=== PATIENT | male | born 1955 ===

== ENCOUNTER 2022-10-21 22:25 | Inpatient (IN) | payer MEDICARE, OTHER, SELFPAY ==
[2022-10-21 22:25] VITALS: BP 130/64; PULSE 93; RESP 32; TEMP 39.6; O2SAT 93; BMI 30.7
[2022-10-21 22:29] VITALS: BP 136/65; PULSE 96; RESP 32; O2SAT 88
[2022-10-21 22:30] VITALS: BP 130/64; PULSE 95; RESP 32; O2SAT 94
--- NOTE | 2022-10-21 22:38 | DI.RAD.S_ITS ---
PROCEDURE: XR CHEST 1V INDICATIONS: suspected sepsis TECHNIQUE: One view of the chest was acquired. COMPARISON: None. FINDINGS: Surgical changes and devices: None. Lungs and pleura: Lungs are clear. No pleural effusions or pneumothorax. Mediastinum: Mediastinal contours appear normal. Heart size is normal. Bones and chest wall: No suspicious bony lesions. Overlying soft tissues appear unremarkable. IMPRESSION: 1. No acute cardiopulmonary disease. Dictated by: Bethel Bain M.D. on 10/21/2022 at 23:56 Approved by: Bethel Bain M.D. on 10/21/2022 at 23:57
[2022-10-21 22:50] LABS: Add Manual Diff / Slide Review NO; Basophils Absolute Auto 0 /uL (0-100); Basophils Percent Auto 0.1 % (0-2); Eosinophils Absolute Auto 0 /uL (0-450); Eosinophils Percent Auto 0.2 % (2-4); Hematocrit 44.1 % (41-53); Hemoglobin 14.4 g/dL (13.5-17.5); Lymphocytes Absolute Auto 900 /uL (1100-4500); Lymphocytes Percent Auto 10.4 % (25-40); Mean Corpuscular HGB Conc 32.7 % (30-36); Mean Corpuscular Hemoglobin 26.5 PG (26-34); Mean Corpuscular Volume 80.9 fL (80-100); Monocytes Absolute Auto 1000 /uL (0-900); Monocytes Percent Auto 11.6 % (3-14); Neutrophils Absolute Auto 7000 /uL (1500-7000); Neutrophils Percent Auto 77.7 % (50-75); Platelet Count 193 X10^3/uL (150-400); Red Blood Cell Count 5.45 X10^6/uL (4.5-5.9); Red Cell Distribution Width 16.8 % (11.6-14.8); White Blood Cell Count 9.1 X10^3/uL (4.5-11.0)
[2022-10-21 22:53] LABS: INR 1.2 (0.9-1.3); Prothrombin Time 13.3 SECONDS (10.1-12.7)
[2022-10-21 22:56] LABS: PTT Partial Thromboplastin Tim 33 SECONDS (26-36)
[2022-10-21 22:58] LABS: Lactate (Lactic Acid) 1.6 mmol/L (0.7-2.1)
[2022-10-21 23:00] LABS: Alanine Aminotransferase 22 IU/L (<50); Albumin 4.3 g/dL (3.5-5.0); Albumin Globulin Ratio 1.1 (1.0-2.8); Alkaline Phosphatase 115 U/L (38-126); Aspartate Aminotransferase 33 IU/L (17-59); BUN Creatinine Ratio 17.6 (6-22); Bilirubin Total 0.9 mg/dL (0.2-1.3); Blood Urea Nitrogen 19 mg/dL (9-20); Carbon Dioxide 31 mmol/L (22-32); Chloride 94 mmol/L (98-107); Estimated Glomerular Filt Rate > 60 mL/min (>60); Globulin 3.9 g/dL (1.7-4.1); Glucose 118 mg/dL (80-110); HEMOLYSIS < 15 (0-50); Lipase 74 U/L (23-300); Potassium 3.6 mmol/L (3.4-5.1); Sodium 134 mmol/L (137-145); Total Protein 8.2 g/dL (6.3-8.2)
[2022-10-21 23:10] VITALS: PULSE 90; RESP 22; O2SAT 96
[2022-10-21] MEDS: ALBUTEROL 2.5 MG/3 ML NEB (ADULT) INH (23:10)
[2022-10-21 23:16] LABS: Procalcitonin 0.17 ng/mL (<0.5)
--- NOTE | 2022-10-21 23:20 | ED.GENADULT ---
HPI - General Adult General Chief complaint: Fever Stated complaint: Lethargic, High grade fever Time Seen by Provider: 10/21/22 23:20 Source: patient and EMS Mode of arrival: EMS History of Present Illness HPI narrative: 67-year-old gentleman brought in by his with complaints of altered mental status, fever and global weakness. No immediate records are available and patient states that his primary care doctor is in [place]. He is clearly confused and additional history is not forthcoming. Review of his current medication list indicates Parkinson's disease, peripheral neuropathy, reflux, hypertension as well as diabetes. Per report, patient's temperature at home was 105 room air sats were 86%. There has been a cough over the last at least 3 days, he denies nausea vomiting or diarrhea. He states that he has been eating less over the last few days and also complains of no chest pain or palpitations. He denies any fever. Further history notes that he and his are in fact visiting for a [facility] ceremony Related Data Home Medications Medication Instructions Recorded Confirmed albuterol sulfate 90 mcg/actuation See Rx Instructions .Route .COMPLEX 10/21/22 10/21/22 aerosol inhaler calcium carbonate 600 mg-vitamin 1 tab PO DAILY 10/21/22 10/21/22 D3 10 mcg (400 unit) tablet (Calcium 600 + D(3)) carbidopa 25 mg-levodopa 100 mg tab 10/21/22 tablet cephalexin 500 mg capsule mg 10/21/22 diclofenac sodium 1 % topical gel topical 10/21/22 docusate sodium 100 mg capsule 100 mg PO BID 10/21/22 10/21/22 famotidine 20 mg tablet mg 10/21/22 ferrous sulfate 325 mg (65 mg 325 mg PO DAILY 10/21/22 10/21/22 iron) tablet gabapentin 100 mg capsule 100 mg PO TID 10/21/22 10/21/22 hydrochlorothiazide 25 mg tablet 12.5 mg PO DAILY 10/21/22 10/21/22 metoprolol tartrate 25 mg tablet 25 mg PO BID 10/21/22 10/21/22 naproxen 250 mg tablet mg 10/21/22 omeprazole 40 mg capsule,delayed 40 mg PO DAILY 10/21/22 10/21/22 release triamcinolone acetonide 0.1 % topical 10/21/22 lotion Allergies Allergy/AdvReac Type Severity Reaction Status Date / Time No Known Drug Allergies Allergy Verified 10/21/22 23:11 Review of Systems Review of Systems Narrative: Pertinent positive and negative findings as per HPI Patient History Medical History (Updated 10/22/22 @ 01:06 by Glendy Kelley MD) Acid reflux Diabetes Hypertension Parkinsons Exam Initial Vital Signs Initial Vital Signs: Vital Signs Temperature 103.2 F H 10/21/22 22:25 Pulse Rate 93 H 10/21/22 22:25 Respiratory Rate 32 H 10/21/22 22:25 Blood Pressure 130/64 10/21/22 22:25 Pulse Oximetry 93 10/21/22 22:25 Oxygen Delivery Method Nasal Cannula 10/21/22 22:25 Oxygen Flow Rate 2 10/21/22 22:25 General: Chronically ill-appearing, confused, tachypneic HEENT: Moist mucous membranes, normal sclera with reactive pupils, Neck: No JVD, supple, no cervical adenopathy Respiratory: Lungs with minor scattered wheezes in middle lung montejo, no rhonchi no rales.. Full and symmetrical air movement Cardiac: Regular rate and rhythm no murmurs no bruits Abdomen: Soft, nontender, good bowel tones, no flank pain Skin: Warm and dry, no rashes Neurologic: Moving all extremities but clearly altered, globally weak Extremities: No trauma, well perfused Psych: Cooperative, not oriented to place or events Course Orders Ordered: ED Orders 10/21/22 22:27 Complete Blood Count AUTO DIFF Stat Comprehensive Metabolic Panel Stat Lactate (Lactic Acid) Stat Lipase Stat PTT Partial Thromboplastin Ino Stat Procalcitonin Stat Prothrombin Time INR Stat 10/21/22 22:29 Respiratory Panel (Film Array) Stat 10/21/22 22:38 XR chest 1V Stat EKG-12 Lead Stat RT Consult Eval and Treat NOW 10/21/22 22:58 Blood Culture Stat Ondansetron HCl (Ondansetron 4 Mg/2 Ml Inj) 4 mg IV NOW PRN PRN Reason: Nausea And Vomiting Ondansetron HCl (Ondansetron 4 Mg Odt) 4 mg SL NOW PRN PRN Reason: Nausea And Vomiting Discontinued Medications Acetaminophen (Acetaminophen 325 Mg Tablet) 975 mg PO NOW ONE Stop: 10/21/22 23:45 Last Admin: 10/21/22 23:54 Dose: 975 mg Documented By: SB Albuterol (Albuterol 2.5 Mg/3 Ml Neb (Adult)) 2.5 mg INH NOW ONE Stop: 10/21/22 23:02 Last Admin: 10/21/22 23:10 Dose: 2.5 mg Documented By: JERMAIN Sodium Chloride (Normal Saline 0.9%) 1,000 mls @ 1,000 mls/hr IV BOLUS ONE Stop: 10/21/22 23:37 Last Admin: 10/21/22 23:54 Dose: 1,000 mls/hr Documented By: SURI Vital Signs Vital signs: Vital Signs - 8 hr 10/21/22 22:25 10/21/22 23:10 10/21/22 22:29 Temperature 103.2 F H Pulse Rate 93 H 90 Respiratory Rate 32 H 22 Blood Pressure 130/64 136/65 Pulse Oximetry 93 96 Oxygen Delivery Method Nasal Cannula Nasal Cannula Oxygen Flow Rate 2 2 Fraction of Inspired Oxygen 28 10/21/22 22:29 10/21/22 22:30 10/21/22 22:30 Temperature Pulse Rate 96 H 95 H Respiratory Rate 32 H 32 H Blood Pressure 130/64 Pulse Oximetry 88 L 94 Oxygen Delivery Method Room Air Nasal Cannula Oxygen Flow Rate 2 Fraction of Inspired Oxygen 10/21/22 23:57 10/21/22 23:58 10/21/22 23:58 Temperature Pulse Rate 97 H 98 H Respiratory Rate 28 H 29 H Blood Pressure 138/64 Pulse Oximetry 95 96 Oxygen Delivery Method Nasal Cannula Oxygen Flow Rate 2 Fraction of Inspired Oxygen 10/22/22 00:00 10/22/22 00:00 10/22/22 00:30 Temperature Pulse Rate 99 H Respiratory Rate 30 H Blood Pressure 134/57 L 132/60 Pulse Oximetry 94 Oxygen Delivery Method Oxygen Flow Rate Fraction of Inspired Oxygen 10/22/22 00:30 10/22/22 00:34 Temperature 101.7 F H 101.7 F H Pulse Rate 94 H Respiratory Rate 26 H Blood Pressure Pulse Oximetry 94 Oxygen Delivery Method Nasal Cannula Oxygen Flow Rate 2 Fraction of Inspired Oxygen Medical Decision Making Lab Data 10/21/22 22:27 10/21/22 22:27 Labs: Lab Results 10/21/22 10/21/22 10/21/22 Range/Units 22:27 22:27 22:27 WBC 9.1 (4.5-11.0) X10^3/uL RBC 5.45 (4.5-5.9) X10^6/uL Hgb 14.4 (13.5-17.5) g/dL Hct 44.1 (41-53) % MCV 80.9 (80-100) fL MCH 26.5 (26-34) PG MCHC 32.7 (30-36) % RDW 16.8 H (11.6-14.8) % Plt Count 193 (150-400) X10^3/uL Neut % (Auto) 77.7 H (50-75) % Lymph % (Auto) 10.4 L (25-40) % [place] % (Auto) 11.6 (3-14) % Eos % (Auto) 0.2 L (2-4) % Baso % (Auto) 0.1 (0-2) % Neut # (Auto) 7000 (6169-2116) /uL Lymph # (Auto) 900 L (2820-9290) /uL [place] # (Auto) 1000 H (0-900) /uL Eos # (Auto) 0 (0-450) /uL Baso # (Auto) 0 (0-100) /uL PT 13.3 H (10.1-12.7) SECONDS INR 1.2 (0.9-1.3) APTT 33 (26-36) SECONDS Sodium 134 L (137-145) mmol/L Potassium 3.6 (3.4-5.1) mmol/L Chloride 94 L (98-107) mmol/L Carbon Dioxide 31 (22-32) mmol/L BUN 19 (9-20) mg/dL Creatinine 1.08 (0.66-1.25) mg/dL Estimated GFR > 60 (>60) mL/min BUN/Creatinine Ratio 17.6 (6-22) Glucose 118 H (80-110) mg/dL Lactate (0.7-2.1) mmol/L Calcium 8.0 L (8.4-10.2) mg/dL Total Bilirubin 0.9 (0.2-1.3) mg/dL AST 33 (17-59) IU/L ALT 22 (<50) IU/L Alkaline Phosphatase 115 (38-126) U/L Total Protein 8.2 (6.3-8.2) g/dL Albumin 4.3 (3.5-5.0) g/dL Globulin 3.9 (1.7-4.1) g/dL Albumin/Globulin Ratio 1.1 (1.0-2.8) Lipase 74 (23-300) U/L Procalcitonin 0.17 (<0.5) ng/mL Chlamy pneumoniae PCR (Not Detect) Adenovirus (PCR) (Not Detect) B. pertussis DNA (PCR) (Not Detecte) B.parapertussis DNA PCR (Not Detecte) Coronavirus OC43 (PCR) (Not Detect) Coronavirus HKU1 (PCR) (Not Detect) Coronavirus 229E (PCR) (Not Detect) SARS-CoV-2 (PCR) (Not Detecte) Coronavirus NL63 (PCR) (Not Detect) Human Metapneumovir PCR (Not Detect) Influenza Type A (PCR) (Not Detect) Influenza Type B (PCR) (Not Detect) M. pneumoniae (PCR) (Not Detect) Parainfluenza 1 (PCR) (Not Detect) Parainfluenza 2 (PCR) (Not Detect) Parainfluenza 3 (PCR) (Not Detect) Parainfluenza 4 (PCR) (Not Detect) RSV (PCR) (Not Detect) Entero/Rhino (PCR) (Not Detect) 10/21/22 10/21/22 Range/Units 22:27 22:29 WBC (4.5-11.0) X10^3/uL RBC (4.5-5.9) X10^6/uL Hgb (13.5-17.5) g/dL Hct (41-53) % MCV (80-100) fL MCH (26-34) PG MCHC (30-36) % RDW (11.6-14.8) % Plt Count (150-400) X10^3/uL Neut % (Auto) (50-75) % Lymph % (Auto) (25-40) % [place] % (Auto) (3-14) % Eos % (Auto) (2-4) % Baso % (Auto) (0-2) % Neut # (Auto) (7074-8200) /uL Lymph # (Auto) (7634-6465) /uL [place] # (Auto) (0-900) /uL Eos # (Auto) (0-450) /uL Baso # (Auto) (0-100) /uL PT (10.1-12.7) SECONDS INR (0.9-1.3) APTT (26-36) SECONDS Sodium (137-145) mmol/L Potassium (3.4-5.1) mmol/L Chloride (98-107) mmol/L Carbon Dioxide (22-32) mmol/L BUN (9-20) mg/dL Creatinine (0.66-1.25) mg/dL Estimated GFR (>60) mL/min BUN/Creatinine Ratio (6-22) Glucose (80-110) mg/dL Lactate 1.6 (0.7-2.1) mmol/L Calcium (8.4-10.2) mg/dL Total Bilirubin (0.2-1.3) mg/dL AST (17-59) IU/L ALT (<50) IU/L Alkaline Phosphatase (38-126) U/L Total Protein (6.3-8.2) g/dL Albumin (3.5-5.0) g/dL Globulin (1.7-4.1) g/dL Albumin/Globulin Ratio (1.0-2.8) Lipase (23-300) U/L Procalcitonin (<0.5) ng/mL Chlamy pneumoniae PCR Not detected (Not Detect) Adenovirus (PCR) Not detected (Not Detect) B. pertussis DNA (PCR) Not detected (Not Detecte) B.parapertussis DNA PCR Not detected (Not Detecte) Coronavirus OC43 (PCR) Not detected (Not Detect) Coronavirus HKU1 (PCR) Not detected (Not Detect) Coronavirus 229E (PCR) Not detected (Not Detect) SARS-CoV-2 (PCR) Not detected (Not Detecte) Coronavirus NL63 (PCR) Not detected (Not Detect) Human Metapneumovir PCR Not detected (Not Detect) Influenza Type A (PCR) Not detected (Not Detect) Influenza Type B (PCR) Not detected (Not Detect) M. pneumoniae (PCR) Not detected (Not Detect) Parainfluenza 1 (PCR) Not detected (Not Detect) Parainfluenza 2 (PCR) Detected H (Not Detect) Parainfluenza 3 (PCR) Not detected (Not Detect) Parainfluenza 4 (PCR) Not detected (Not Detect) RSV (PCR) Not detected (Not Detect) Entero/Rhino (PCR) Not detected (Not Detect) MDM Narrative Medical decision making narrative: CC: Fever weakness confusion this is an acute problem uncertain prognosis Complicating co-morbidities: Parkinson's, diabetes, hypertension Data collected from: patient, Social determinants of health that may influence the patients condition: No access to medical records and history from patient is unreliable Medical records reviewed: Does not appear to have been evaluated at [facility] or [facility] previously Differential considered: Viral infection, bacterial infection, sepsis, stroke Exam documented above, pertinent findings include: Globally weak, confused, scattered wheeze no focal findings for bacterial infection appreciated Lab Test results independently reviewed as above. Pertinent findings: Respiratory panel is positive for parainfluenza 2 CBC is unremarkable white cell count is within normal limits no significant anemia. Metabolic panel is relatively benign Procalcitonin is not elevated Lactic acid is not elevated Independently reviewed EKG: Sinus rhythm with a right bundle branch block. No acute ischemic changes. No comparisons available Imaging studies independently reviewed: Chest x-ray does not show Treatments: Tylenol, fluids, Zofran Discussion: 67-year-old gentleman who presents with fever confusion and weakness. He is positive for parainfluenza virus which is the likely explanation. There is no sign of bacterial infection or lactic acidosis. History overall is limited. Given the overall presentation with oxygen saturations at 86% I believe he needs to be admitted for his viral pneumonia with confusion fever and hypoxia. His responding nicely to nasal cannula oxygen and I do not anticipate that he will progress to needing additional respiratory support within the next 24 hours. There is no indication at this time for antibiotics. There is no evidence of acute coronary syndrome or stroke. Care is reviewed with hospitalist service and patient is admitted. Discharge Plan Departure Patient Disposition: Admitted as Observation Clinical Impression: Parainfluenza infection, Hypoxia Altered mental state Qualifiers: Altered mental status type: delirium Qualified Code(s): R41.0 - Disorientation, unspecified
[2022-10-21 23:37] LABS: Adenovirus Not Detected (Not Detect); Coronavirus 229E Not Detected (Not Detect); Coronavirus HKU1 Not Detected (Not Detect); Coronavirus NL 63 Not Detected (Not Detect); Coronavirus OC43 Not Detected (Not Detect); Human Metapneumovirus Not Detected (Not Detect); Human Rhinovirus/Enterovirus Not Detected (Not Detect); Influenza A Not Detected (Not Detect); Influenza B Not Detected (Not Detect); Parainfluenza Virus 1 Not Detected (Not Detect); Parainfluenza Virus 2 Detected (Not Detect); SARS- CoV-2 Not Detected (Not Detecte)
[2022-10-21 23:38] LABS: B. parapertussis Not Detected (Not Detecte); Bordetella pertussis Not Detected (Not Detecte); Chlamydophila pneumoniae Not Detected (Not Detect); Mycoplasma pneumoniae Not Detected (Not Detect); Parainfluenza Virus 3 Not Detected (Not Detect); Parainfluenza Virus 4 Not Detected (Not Detect); Respiratory Syncytial Virus Not Detected (Not Detect)
[2022-10-21] MEDS: ACETAMINOPHEN 325 MG TABLET 975 MG PO (23:54)
[2022-10-21] MEDS: SODIUM CHLORIDE 0.9% 1,000 ML 1000 ML IV (23:54)
[2022-10-21 23:57] VITALS: PULSE 97; RESP 28; O2SAT 95
[2022-10-21 23:58] VITALS: BP 138/64; PULSE 98; RESP 29; O2SAT 96
[2022-10-22] VITALS (16 sets, daily range): BP systolic 115–146; BP diastolic 51–77; PULSE 65–99; RESP 17–30; TEMP 37–38.7; O2SAT 92–97; BMI 30.3
--- NOTE | 2022-10-22 01:29 | P.HP_ITS ---
History of Present Illness History of Present Illness Date Patient Seen: 10/22/22 Time Patient Seen: 01:29 Chief complaint: Acute respiratory failure, parainflu2, enceph Narrative: Kevin Torres is a 67-year-old male with a medical history of Parkinson's disease, peripheral neuropathy, GERD, HTN, asthma, iron-deficiency anemia who is visiting the area from [place] patient was brought in by his this evening for acute onset of confusion, fever, global weakness, with cough x3 days. Patient presented to the ED fever 103.2, 93, tachypneic 32, 130/64, hypoxic O2 saturation 86% on room air. The patient's dropped him off in the ED and was not present at the bedside for Dr. Uirbe ED to interview. Patient is clearly confused, able to state his name and knows that he is in hospital but is confused as to how he got here, and unable to provide accurate HPI, ROS, family history, or medication reconciliation. Patient denies any pain, discomfort, or shortness of breath, and appears to be resting comfortably in bed. On admit temp 101.7?, 132/60, 94, 22, pulse ox 94% on 2 L nasal cannula. Patient's workup is predominantly unremarkable sodium 134, chloride 94, lactate procalcitonin are normal, CXR-negative for any acute process. EKG:NSR, rate of 96, right BBB without ST or T-wave changes. Patient's respiratory panel positive for parainfluenza 2. Patient admitted for acute hypoxic respiratory failure secondary to parainfluenza 2 with encephalopathy. [facility] Medical History Acid reflux Asthma Hypertension Iron deficiency anemia Parkinsons disease Peripheral neuropathy Meds Home Medications and Allergies Home Medications Medication Instructions Recorded Confirmed Type albuterol sulfate 90 mcg/actuation See Rx Instructions .Route .COMPLEX 10/21/22 10/21/22 History aerosol inhaler calcium carbonate 600 mg-vitamin 1 tab PO DAILY 10/21/22 10/21/22 History D3 10 mcg (400 unit) tablet (Calcium 600 + D(3)) carbidopa 25 mg-levodopa 100 mg tab 10/21/22 History tablet cephalexin 500 mg capsule mg 10/21/22 History diclofenac sodium 1 % topical gel topical 10/21/22 History docusate sodium 100 mg capsule 100 mg PO BID 10/21/22 10/21/22 History famotidine 20 mg tablet mg 10/21/22 History ferrous sulfate 325 mg (65 mg 325 mg PO DAILY 10/21/22 10/21/22 History iron) tablet gabapentin 100 mg capsule 100 mg PO TID 10/21/22 10/21/22 History hydrochlorothiazide 25 mg tablet 12.5 mg PO DAILY 10/21/22 10/21/22 History metoprolol tartrate 25 mg tablet 25 mg PO BID 10/21/22 10/21/22 History naproxen 250 mg tablet mg 10/21/22 History omeprazole 40 mg capsule,delayed 40 mg PO DAILY 10/21/22 10/21/22 History release triamcinolone acetonide 0.1 % topical 10/21/22 History lotion Allergies Allergy/AdvReac Type Severity Reaction Status Date / Time No Known Drug Allergies Allergy Verified 10/21/22 23:11 Review of Systems Review of Systems Narrative: Unable to obtain accurate ROS as patient has encephalopathy, in ED he denied fever Exam Vital Signs (past 8 hours): - 10/21/22 22:25 10/21/22 23:10 10/21/22 22:29 Temperature 103.2 F H Pulse Rate 93 H 90 Respiratory Rate 32 H 22 Blood Pressure 130/64 136/65 Pulse Oximetry 93 96 Oxygen Delivery Method Nasal Cannula Nasal Cannula Oxygen Flow Rate 2 2 Fraction of Inspired Oxygen 28 10/21/22 22:29 10/21/22 22:30 10/21/22 22:30 Temperature Pulse Rate 96 H 95 H Respiratory Rate 32 H 32 H Blood Pressure 130/64 Pulse Oximetry 88 L 94 Oxygen Delivery Method Room Air Nasal Cannula Oxygen Flow Rate 2 Fraction of Inspired Oxygen 10/21/22 23:57 10/21/22 23:58 10/21/22 23:58 Temperature Pulse Rate 97 H 98 H Respiratory Rate 28 H 29 H Blood Pressure 138/64 Pulse Oximetry 95 96 Oxygen Delivery Method Nasal Cannula Oxygen Flow Rate 2 Fraction of Inspired Oxygen 10/22/22 00:00 10/22/22 00:00 10/22/22 00:30 Temperature Pulse Rate 99 H Respiratory Rate 30 H Blood Pressure 134/57 L 132/60 Pulse Oximetry 94 Oxygen Delivery Method Oxygen Flow Rate Fraction of Inspired Oxygen 10/22/22 00:30 10/22/22 00:34 Temperature 101.7 F H 101.7 F H Pulse Rate 94 H Respiratory Rate 26 H Blood Pressure Pulse Oximetry 94 Oxygen Delivery Method Nasal Cannula Oxygen Flow Rate 2 Fraction of Inspired Oxygen Fraction of Inspired Oxygen 28 SaO2/FiO2 Ratio 342 Oxygen Delivery Method Nasal Cannula Oxygen Flow Rate 2 Narrative Exam Narrative: General: Patient is a well-developed, well-nourished male in no distress at this time. HEENT: Normocephalic, atraumatic, extraocular muscles intact, oral pharynx is clear and mucous membranes are moist. Neck is supple and symmetric, trachea is midline, no adenopathy, no thyroid enlargement, nontender, no masses palpated. Negative for JVD Chest: Normal AP diameter and contour without kyphoscoliosis, Equal chest rise without nasal flaring, retractions, or labored breathing. Mild tachypnea Lungs: Auscultation of all lung montejo bilateral lower lobes decreased, poor air exchange with expiratory wheezing Cardio: regular rate and rhythm without murmur, rubs, or gallops, no carotid bruit, no cardiac pulsations present. Abdomen: Soft nontender, negative for organomegaly, or masses. Bowel sounds are present in all 4 quadrants without guarding or rebound, no CVA tenderness. Musculoskeletal: Muscle strength and tone are equal, no deformity, crepitus, effusions, cyanosis, clubbing or edema present. Full range of motion intact radial and pedal pulses are normal. Skin: Very Warm dry and intact without rashes, ulcerations or petechiae. Neuro: Alert and orientated to self, moves all extremities, sensation to touch intact, no gross deficits noted of cranial nerves. Psych: Patient confused, does have what appears to be a diagnosis of Parkinson's. Objective Labs 10/21/22 22:27 10/21/22 22:27 Labs: Laboratory Results - last 24 hr 10/21/22 10/21/22 10/21/22 22:27 22:27 22:27 WBC 9.1 RBC 5.45 Hgb 14.4 Hct 44.1 MCV 80.9 MCH 26.5 MCHC 32.7 RDW 16.8 H Plt Count 193 Neut % (Auto) 77.7 H Lymph % (Auto) 10.4 L [place] % (Auto) 11.6 Eos % (Auto) 0.2 L Baso % (Auto) 0.1 Neut # (Auto) 7000 Lymph # (Auto) 900 L [place] # (Auto) 1000 H Eos # (Auto) 0 Baso # (Auto) 0 PT 13.3 H INR 1.2 APTT 33 Sodium 134 L Potassium 3.6 Chloride 94 L Carbon Dioxide 31 BUN 19 Creatinine 1.08 Estimated GFR > 60 BUN/Creatinine Ratio 17.6 Glucose 118 H Lactate Calcium 8.0 L Total Bilirubin 0.9 AST 33 ALT 22 Alkaline Phosphatase 115 Total Protein 8.2 Albumin 4.3 Globulin 3.9 Albumin/Globulin Ratio 1.1 Lipase 74 Procalcitonin 0.17 Chlamy pneumoniae PCR Adenovirus (PCR) B. pertussis DNA (PCR) B.parapertussis DNA PCR Coronavirus OC43 (PCR) Coronavirus HKU1 (PCR) Coronavirus 229E (PCR) SARS-CoV-2 (PCR) Coronavirus NL63 (PCR) Human Metapneumovir PCR Influenza Type A (PCR) Influenza Type B (PCR) M. pneumoniae (PCR) Parainfluenza 1 (PCR) Parainfluenza 2 (PCR) Parainfluenza 3 (PCR) Parainfluenza 4 (PCR) RSV (PCR) Entero/Rhino (PCR) 10/21/22 10/21/22 22:27 22:29 WBC RBC Hgb Hct MCV MCH MCHC RDW Plt Count Neut % (Auto) Lymph % (Auto) [place] % (Auto) Eos % (Auto) Baso % (Auto) Neut # (Auto) Lymph # (Auto) [place] # (Auto) Eos # (Auto) Baso # (Auto) PT INR APTT Sodium Potassium Chloride Carbon Dioxide BUN Creatinine Estimated GFR BUN/Creatinine Ratio Glucose Lactate 1.6 Calcium Total Bilirubin AST ALT Alkaline Phosphatase Total Protein Albumin Globulin Albumin/Globulin Ratio Lipase Procalcitonin Chlamy pneumoniae PCR Not detected Adenovirus (PCR) Not detected B. pertussis DNA (PCR) Not detected B.parapertussis DNA PCR Not detected Coronavirus OC43 (PCR) Not detected Coronavirus HKU1 (PCR) Not detected Coronavirus 229E (PCR) Not detected SARS-CoV-2 (PCR) Not detected Coronavirus NL63 (PCR) Not detected Human Metapneumovir PCR Not detected Influenza Type A (PCR) Not detected Influenza Type B (PCR) Not detected M. pneumoniae (PCR) Not detected Parainfluenza 1 (PCR) Not detected Parainfluenza 2 (PCR) Detected H Parainfluenza 3 (PCR) Not detected Parainfluenza 4 (PCR) Not detected RSV (PCR) Not detected Entero/Rhino (PCR) Not detected Assessment & Plan Assessment & Plan narrative: Kevin Torres is a 67-year-old male with a medical history of Parkinson's disease, peripheral neuropathy, GERD, HTN, asthma, iron-deficiency anemia who is [place] the area from [place] patient was brought in by his this evening for acute onset of confusion, fever, global weakness, with cough x3 days. Patient admitted for acute hypoxic respiratory failure secondary to parainfluenza 2 with encephalopathy. Acute hypoxic respiratory failure secondary to parainfluenza 2, acute, present on admit * ED fever 103.2, 93, tachypneic 32, 130/64, hypoxic O2 saturation 86% on room air. * admit temp 101.7?, 132/60, 94, 22, pulse ox 94% on 2 L nasal cannula * Respiratory consult as needed, incentive spirometry, DuoNebs b.i.d. * Blood cultures pending, sputum culture ordered * manage temp, and resp function. Sepsis, without septic shock, acute, present on admission * Respiratory secondary to parainfluenza 2 * Sofa score: 3 * 1 L bolus in ED, ordered additional L bolus * Lactate, procalcitonin, CXR, and WBC neg-did not initiate antibiotics Encephalopathy, acute secondary to parainfluenza 2, acute, present on admission * NS at 80cc/hr * Neuro checks as needed * UA, tox screen ordered * Strict fall precautions Parkinson's disease, chronic, present on admission * Continue carbidopa-levodopa Hypertension, essential, chronic, present on admission * Continue metoprolol, HCTZ Iron-deficiency anemia, chronic, present on admission * Continue ferrous sulfate GERD, chronic, present on admission * Continue omeprazole Obesity, mild, acute on chronic, present on admission * BMI 30.7 * dietary consult ordered regarding nutritional education and information for dietary, lifestyle, exercise, and weight changes. * the patient is at much higher risk for medical and surgical complications due to obesity as it relates to chronic illnesses:, and acute illness. The patient's obesity increases the difficulty and complexity of medical and/or surgical interventions, management and increases the chances of poor outcome such as morbidity and mortality as well as impaired wound healing. Code status:full Surrogate decision maker: spouse Cara Torres DVT/VTE prophylaxis: Lovenox and SCDs Disposition: patient admit to acute care expected length of stay greater than 2 midnights. I have utilized all available immediate resources to obtain, update, or review the patient's current medications. I confirmed that the patient's advanced care plan is present, Code status is documented and/or surrogate decision maker is listed in the patient's medical record. I have personally reviewed patient's chart notes from PCP, specialists, diagnostic imaging, and laboratory results. Scores GCS Lucio coma scale eye opening: To sound Lucio coma scale verbal response: Confused Lucio coma scale motor response: Obey commands Lucio coma scale total score: 13
[2022-10-22 02:00] LABS: NT-proBNP (BNP-Adult 18+) 291 pg/mL (<125)
[2022-10-22] MEDS: SODIUM CHLORIDE 0.9% 1,000 ML 1000 ML IV (03:08)
[2022-10-22] MEDS: SODIUM CHLORIDE 0.9% 1,000 ML 80 ML IV ×2 (04:05→17:10)
[2022-10-22 05:34] LABS: Add Manual Diff / Slide Review NO; Basophils Absolute Auto 0 /uL (0-100); Basophils Percent Auto 0.3 % (0-2); Eosinophils Absolute Auto 0 /uL (0-450); Hematocrit 38.8 % (41-53); Hemoglobin 12.6 g/dL (13.5-17.5); Lymphocytes Absolute Auto 900 /uL (1100-4500); Lymphocytes Percent Auto 11.9 % (25-40); Mean Corpuscular HGB Conc 32.4 % (30-36); Mean Corpuscular Hemoglobin 26.3 PG (26-34); Mean Corpuscular Volume 81.1 fL (80-100); Monocytes Absolute Auto 800 /uL (0-900); Monocytes Percent Auto 11.4 % (3-14); Neutrophils Absolute Auto 5600 /uL (1500-7000); Neutrophils Percent Auto 76.4 % (50-75); Platelet Count 163 X10^3/uL (150-400); Red Blood Cell Count 4.78 X10^6/uL (4.5-5.9); Red Cell Distribution Width 16.9 % (11.6-14.8); White Blood Cell Count 7.3 X10^3/uL (4.5-11.0)
[2022-10-22 05:41] LABS: Appearance Urine UA CLEAR; Bilirubin Urine UA NEGATIVE (NEGATIVE); Color Urine UA YELLOW; Glucose Urine UA NEGATIVE (Negative); Ketones Urine UA NEGATIVE (NEGATIVE); Leukocyte Esterase Urine UA NEGATIVE (NEGATIVE); Nitrite Urine UA NEGATIVE (Negative); Occult Blood Urine UA NEGATIVE (Negative); Protein Urine UA NEGATIVE (Negative); Urobilinogen Urine UA 0.2 E.U./dL (0.2)
[2022-10-22 05:44] LABS: Blood Urea Nitrogen 16 mg/dL (9-20); Carbon Dioxide 29 mmol/L (22-32); Chloride 101 mmol/L (98-107); Estimated Glomerular Filt Rate > 60 mL/min (>60); Glucose 109 mg/dL (80-110); HEMOLYSIS < 15 (0-50); Potassium 3.2 mmol/L (3.4-5.1); Sodium 135 mmol/L (137-145)
[2022-10-22 05:49] LABS: UR Morphine/Opiate cutoff 300 Negative (Negative); Ur Creatinine 20 (Normal); Urine Amphetamines Negative (Negative); Urine Barbiturates Negative (Negative); Urine Benzodiazepines Negative (Negative); Urine Cocaine Negative (Negative); Urine MDMA Negative (Negative); Urine Methadone Negative (Negative); Urine Methamphetamines Negative (Negative); Urine Oxycodone Positive (Negative); Urine Phencyclidine Negative (Negative); Urine Tetrahydrocannabinol Negative (Negative); Urine Tricyclic Antidepressant Negative (Negative); Urine pH 6 (Normal)
[2022-10-22 05:53] LABS: Bacteria Urine None Seen; Culture Indicated Urine Cult Not Indicated; RBC Urine None Seen (0-5/HPF); Squamous Epithelial Cell Urine None Seen (0-5/HPF); WBC Urine None Seen (0-5/HPF)
[2022-10-22] MEDS: ALBUTEROL/IPRATROPIUM 3 ML AMPUL INH ×2 (08:39→19:07)
[2022-10-22] MEDS: GABAPENTIN 100 MG CAPSULE PO ×3 (09:27→22:03)
[2022-10-22] MEDS: CARBIDOPA-LEVODOPA 25/100 TABLET 1 EACH PO ×3 (09:27→22:03)
[2022-10-22] MEDS: FERROUS SULFATE 325 MG TABLET PO (09:27)
[2022-10-22] MEDS: PANTOPRAZOLE DR 40 MG TABLET PO (09:27)
[2022-10-22] MEDS: ENOXAPARIN 40 MG/0.4 ML SYRINGE SUBCUT (09:27)
[2022-10-22] MEDS: OSELTAMIVIR 75 MG CAPSULE PO ×2 (09:27→22:03)
[2022-10-22] MEDS: METOPROLOL IR 25 MG TABLET PO ×2 (09:27→22:03)
[2022-10-22] MEDS: POTASSIUM CHLORIDE 20 MEQ TAB 40 MEQ PO ×2 (09:29→15:14)
--- NOTE | 2022-10-22 12:45 | OT.IP.EVAL ---
Past Medical History (Last Reviewed 10/22/22 @ 01:38 by Natalia Noe, [facility]) Acid reflux Asthma Hypertension Iron deficiency anemia Parkinsons disease Peripheral neuropathy Occupational Therapy Inpatient Evaluation/Re-Eval M1 PT/OT-IP Prior Functional Status Start: 10/22/22 08:53 Freq: NEEDED Status: Active Protocol: Document 10/22/22 12:53 CGR (Rec: 10/22/22 13:07 CGR [id number]) Medical Review Prior Functional Status Medical History Reviewed Yes Communication Pt is an effective verbal communicator but speaks softly . Mobility and Gait Pt states he was IND for functional mobility at baseline. Activities of Daily Living and IADL's Pt states he is typically IND for all ADLs and drives but his sometimes assists with LB dressing. Social History Household Members significant other Living Arrangements House Number of Floors (Floors) One Floor Number of Stairs To Enter/Railing? no steps to enter Home Environment High Toilet,Tub/Shower Home Equipment Four Wheel Walker,Straight Cane Employment Status Retired Additional Social History Comment Pt lives in [place] and is visiting for a [employer] ritual. M2 OT-IP Current Condition Start: 10/22/22 12:52 Freq: Status: Active Protocol: Document 10/22/22 12:53 CGR (Rec: 10/22/22 13:07 R [id number]) Occupational Therapy Current Condition Current Condition Evaluation Date 10/22/22 Treatment Diagnosis acute hypoxic respiratory failure from Influenza. Diagnosis Onset Date 10/22/22 M3 OT- IP Subjective and Pain Start: 10/22/22 12:52 Freq: Status: Active Protocol: Document 10/22/22 12:53 CGR (Rec: 10/22/22 13:07 R [id number]) OT- Subjective Occupational Therapy Visit Type Type Initial Evaluation Visit Start Time 12:28 Visit Stop Time 12:45 Total Visit Minutes 17 Notes Pt is sitting EOB starting lunch. Pt is agreeable to transfering to chair for lunch . OT Pain Assessment Pain When Pain Assessed At Rest Pain Present Pain Present Denied Pain M4 OT- IP ADL's Start: 10/22/22 12:52 Freq: Status: Active Protocol: Document 10/22/22 12:53 CGR (Rec: 10/22/22 13:07 CGR [id number]) OT [id number] General Evaluation Self-Feeding Ability Independent Comments OT Self-Feeding Comments Pt eating lunch seated EOB then in chair. OT ADL-Grooming Comments OT Grooming Comments not performed, pt requesting to eat OT ADL-Oral Care Comments Oral Care Comments not performed, pt requesting to eat OT ADL-Dressing General Eval Lower Body Dressing Ability Total Assistance Areas Needing Assistance Socks Comments OT Dressing Comments Pt states that at home he is typically able to perform his LB dressing he sometimes needs assist and requests assist today. OT ADL-Toileting Comments OT Toileting Comments not performed OT ADL-Bathing Comments OT Bathing Comments not performed M5 OT- IP IADL's Start: 10/22/22 12:52 Freq: Status: Active Protocol: Document 10/22/22 12:53 CGR (Rec: 10/22/22 13:07 CGR [id number]) OT-Instrumental Activities of Daily Living Deficits IADL Deficits Identified No Deficits Home Safety Awareness Awareness of Need for Assistance at Home Good Awareness Ability to Problem Solve Emergency Able to Problem Solve Situations Medication Management Medication Management No Deficits Identified Money Management Money Management No Deficits Identified Meal Preparation Meal Preparation Caregiver Provides Assist Spanish Speaking Babysitter Spanish Speaking Babysitter Caregiver Provides Assist Driving Driving Comments Pt states he drives at baseline. M6 OT- IP Functional Cognition Start: 10/22/22 12:52 Freq: Status: Active Protocol: Document 10/22/22 12:53 CGR (Rec: 10/22/22 13:07 CGR [id number]) Cognitive Factors Limiting Selfcare Function Cognitive Ability Level of Alertness Alert Patient Orientation Name,Age,Birthday,Month,Date, Year,Day of Week,Place, Situation Attention Span Ability Capable of Focused Attention, Capable of Sustained Attention Ability to Follow Commands Able to Follow One Step Commands with Increased Time, Able to Follow One Step Commands with Repetition Cognitive Comments Cognitive Assessment Comments Pt is slow to respond and minimally verbal but answers questions appropriatley and follows commands. OT- Vision and Hearing OT- Hearing Assessment OT- Hearing Assessment WFL OT- Vision Assessment Visual Acuity Glasses For Reading Visual Attentiveness WFL Occular Pursuits WFL Visual Convergence WFL M7 OT- IP Mobility and Balance Start: 10/22/22 12:52 Freq: Status: Active Protocol: Document 10/22/22 12:53 CGR (Rec: 10/22/22 13:07 CGR [id number]) OT- Bed Mobility Assessment Scooting Scooting to Edge of Bed Independent OT-Transfer Assessment Sit to and From Stand Sit to and from Stand Standby Assistance Transfers Transfer Ability Standby Assistance Technique Transfer Destination Bed,Chair Transfer Technique Stand Step Pivot Devices Transfer Assistive Devices Gait Belt,Front Wheeled Walker Comments Mobility Comments Pt started the walk to the chair using the walker and pushed it off to the side and took the last few steps without it. Pt states he doesn 't use one at home. OT- Balance Assessment Sitting Balance and Reactions Static Sitting Balance Ability Good Dynamic Sitting Balance Ability Good M8 OT- IP Objective Assessments Start: 10/22/22 12:52 Freq: Status: Active Protocol: Document 10/22/22 12:53 CGR (Rec: 10/22/22 13:07 CGR [id number]) OT Gross Range of Motion Upper Extremity Range of Motion Assessment Within Functional Limits OT Strength Upper Extremity Strength Assessment Within Functional Limits Comments Strength Comments 4/5 throughout OT- Coordination Assessment Upper Extremity Finger to Nose Test Within Functional Limits Finger Tapping Test Within Functional Limits OT-Muscle Tone Assessment Muscle Tone WNL Yes OT Sensation Assessment Edema Edema Absent M9 OT- IP Assessment and Plan Start: 10/22/22 12:52 Freq: Status: Active Protocol: Document 10/22/22 12:53 CGR (Rec: 10/22/22 13:07 CGR [id number]) OT Summary Assessment and Plan Potential Rehabilitation Potential Good Analytic Complexity at Evaluation Low Summary OT Impairments Functional Mobility,Grooming, Dressing,Toileting,Bathing, Toilet Transfers,Shower Transfers,Activity Tolerance Progress Towards Goals Progressing Toward Goals Assessment Summary Pt presents as a low complexity evaluation s/p admit for acute hypoxic respiratory failure and influenza. Pt sitting with NC sitting on the bed besides him . O2 stats on room air at 92%. Pt ambulated to chair and performed limited testing sitting in chair prior to returning to lunch. Pt still at 92% sitting in chair on room air. Goals Grooming Goal Independent Dressing Goal Independent Toileting Goal Independent Bathing Goal Independent Toilet Transfer Goal Independent Shower Transfer Goal Independent Days to Meet Goals 3 Frequency of Treatment Frequency Of Treatment Once a Day Treatment Plan OT Treatment Plan ADL Training,Functional Mobility,Patient/Family Education,Discharge Planning Other Treatment Recommendations and Next shower Treatment Focus Discharge Recommendations OT Discharge Recommendations Home with Assistance Transportation Needs at Discharge Private Vehicle
--- NOTE | 2022-10-22 14:02 | PT.IIE ---
Medical History (Last Reviewed 10/22/22 @ 01:38 by Natalia Noe, [facility]) Acid reflux Asthma Hypertension Iron deficiency anemia Parkinsons disease Peripheral neuropathy Physical Therapy Inpatient Evaluation/Re-Eval M1 PT/OT-IP Prior Functional Status Start: 10/22/22 08:53 Freq: NEEDED Status: Active Protocol: Document 10/22/22 14:02 AW (Rec: 10/22/22 14:17 AW [id number]) Medical Review Prior Functional Status Medical History Reviewed Yes Communication Pt is an effective verbal communicator but speaks softly . Mobility and Gait Pt states he was IND for functional mobility at baseline. Activities of Daily Living and IADL's Pt states he is typically IND for all ADLs and drives but his sometimes assists with LB dressing. Social History Household Members significant other Living Arrangements House Number of Floors (Floors) One Floor Number of Stairs To Enter/Railing? no steps to enter Home Environment High Toilet,Tub/Shower Home Equipment Four Wheel Walker,Straight Cane Employment Status Retired Additional Social History Comment Pt lives in [place] and is visiting for a [place] ritual. M2 PT-IP Current Condition Start: 10/22/22 08:53 Freq: NEEDED Status: Active Protocol: Document 10/22/22 14:02 AW (Rec: 10/22/22 14:17 AW [id number]) Physical Therapy Current Condition Current Condition Evaluation Date 10/22/22 Treatment Diagnosis sepsis, hypoxic resp failure, parainfluenza, PD, impaired mobility Onset Date 10/21/22 M3 PT-IP Subjective Start: 10/22/22 08:53 Freq: NEEDED Status: Active Protocol: Document 10/22/22 14:02 AW (Rec: 10/22/22 14:17 AW [id number]) Subjective Physical Therapy Visit Type Type Initial Evaluation Visit Start Time 13:42 Visit Stop Time 14:02 Total Visit Minutes 20 Notes SPT was present throughout Physical Therapy Visit Comments Patient Comments Pt is willing to participate with PT Therapy Pain Assessment Pain When Pain Assessed During Mobility Pain Present Pain Present Denied Pain M4 PT-IP Mobility and Gait Start: 10/22/22 08:53 Freq: NEEDED Status: Active Protocol: Document 10/22/22 14:02 AW (Rec: 10/22/22 14:17 AW [id number]) PT-Transfer Assessment Sit to and From Stand Sit to and from Stand Standby Assistance,Use of Upper Extremities Equipment Transfer Assistive Device None,Gait Belt Orthotic/Prosthetic Devices or Brace: No Transfers Transfer Destination Chair Transfer Technique Stand Step Pivot Transfer Ability Level of Assist Standby Assistance Comments Mobility Comments As PT arrived, pt was exiting the washroom independently without O2. SpO2 was 91% on room air after this exertion. He sat on the chair and PT assisted to place O2 NC at 2 L /min. SpO2 quickly nithin to 97% . Pt declined bed mobility. He stood from the chair SBA and walked without AD a total of 40 feet in the room. Gait was notable for wide JUDI and hypokinesia, bradykinesia but without overt LOB. No more than SBA required for ambulation without AD. SpO2 was stable on 2 L/min. Pt was able to complete one sit to stand with limited UE support. During 5 Time Sit to Stand, however, pt needed UE support to complete the test in 26 seconds. SpO2 remained stable 96-98% on 2 L/min. Gait Assessment Gait Gait Assistance Required: Standby Assistance Distance (Feet) 40 Assistive Devices Assistive Device None,Gait Belt Gait Deviations General Gait Pattern Decreased Stride Length, Decreased Feet Clearance,Wide Based Gait Factors Limiting Gait Function Factors Limiting Gait Function Decreased Sensation Comments Gait Comments See mobility comments for details. PT-Balance Assessment Sitting Balance and Reactions Static Sitting Balance Ability Good Dynamic Sitting Balance Ability Good Standing Balance and Reactions Static Standing Balance Ability Good Dynamic Standing Balance Ability Good Device Used no AD Functional Assessments Functional Tests 5 Times Sit to Stand 26 seconds M5 PT-IP Objective Assessments Start: 10/22/22 08:53 Freq: NEEDED Status: Active Protocol: Document 10/22/22 14:02 AW (Rec: 10/22/22 14:17 AW [id number]) Orientation Orientation/Cognition Level of Alertness Alert Language Function Ability No Deficits Noted Safety Awareness Understands Safety Issues Comments Pt presents with flat affect/ masking. Gross Range of Motion Upper Extremity ROM Assessment Within Functional Limits Lower Extremity ROM Assessment Within Functional Limits Strength Upper Extremity Strength Assessment Within Functional Limits Lower Extremity Strength Assessment Within Functional Limits Sensation Assessment Sensation Gross Sensation WNL Comments Sensation Comments Chart states pt has peripheral neuropathy but pt denies sensation disturbance on exam. M7 PT-IP Assessment and Plan Start: 10/22/22 08:53 Freq: NEEDED Status: Active Protocol: Document 10/22/22 14:02 AW (Rec: 10/22/22 14:17 AW [id number]) PT Summary Assessment and Plan Potential Rehabilitation Potential Good Status of Condition at Evaluation Evolving Summary Impairments Transfers,Gait,Activity Tolerance Assessment Summary Kevin is a 67 yo man admitted with sepsis and acute respiratory failure secondary to parainfluenza. PMH is significant for Parkinson's disease, neuropathy, GERD, HTN , and asthma. Pt is independent at baseline. On assessment today, pt requires no more than SBA for limited mobility while using 2 L/min O2. Will follow up to progress pt's gait distance and activity tolerance including room air trial if appropriate. PT recommends discharge home with assist once medically stable. Goals Bed Mobility Goal Independent Transfer Goal Independent Gait Goal Independent Gait Distance 150 Days to Meet Goals 3 Frequency of Treatment Frequency Of Treatment Once a Day Treatment Plan Physical Therapy Treatment Plan Bed Mobility Training,Transfer Training,Gait Training, Therapeutic Exercise,Balance Retraining,Discharge Planning, Hot or Cold Pack,Neuromuscular Re-ed Recommendations To Nursing Amount of Assist Needed Standby Assistance Discharge Recommendations PT Discharge Recommendations Home with Assistance Transportation Needs at Discharge Private Vehicle
[2022-10-22] MEDS: ACETAMINOPHEN 325 MG TABLET 650 MG PO ×2 (15:14→22:41)
--- NOTE | 2022-10-22 15:56 | CM.DANOTE ---
DCP/Assessment: Reviewed chart. Patient is a 67yr old male admitted to [facility] with [facility] failure. PCP is in [place] on [facility]. Primary payor is 1)Medicare 2)Self pay. Met with patient explained role. Patient alert and oriented resting comfortably in bed with [address]. Patient denies any d/c planning needs. Patient reports that he hopes to d/c home tomorrow. Notified paitent that CM team would continue to follow. P: Home with spouse when medically stable. KJS Discharge Planning/Care Management CM Discharge Assessment Start: 10/22/22 15:45 Freq: Status: Active Protocol: Document 10/22/22 15:46 KJS (Rec: 10/22/22 15:55 KJS Laptop) Discharge Planning Assessment Assigned Counter Clerk [facility] [place] Contact Information Cara Torres (spouse) # Advance Directives? No History Provided By Patient,Medical Record Has Patient been admitted in last 30 No days? Prior Living Arrangements House Household Members spouse,significant other Type of transporation used prior to Drives own vehicle admit Caregiver for Another No Comment Patient reports that he uses no DME prior to admit. Barriers to Discharge No Comment Patient's spouse will provide transport. They plan to stay at hot the night he is discharged. His spouse will then drive him back to [place] where he resides. Discharge Plan Home Transportation Arrangement Spouse to provide transport. Additional Comment Patient currently on 02 but it is expected that he will not need at time of d/c. Patient seen by therapy and no therapy needs identified.
--- NOTE | 2022-10-22 18:40 | PC.NURSE ---
Day shift: Pt A&Ox4 all shift. Pt OOB with SBA and FWW. Pt states he feels much better than yesterday. Pt has intermittent hacking cough. T100.3 this afternoon. Given PO tylenol. D/c'ed tele monitoring this evening per MD Yang's orders. Pt continues on 1L O2 via NC. Pt denies pain. Attempted to call [facility] today to get accurate medication list, did not hear back from [facility] hand dredge or barge this shift. Will continue to monitor.
[2022-10-22] MEDS: SENNOSIDES 8.6 MG TABLET 17.2 MG PO (22:03)
[2022-10-22] MEDS: BENZONATATE 100 MG CAPSULE PO (22:41)
[2022-10-23 00:17] VITALS: BP 125/63; PULSE 70; RESP 18; TEMP 37.7; O2SAT 92
[2022-10-23 03:10] VITALS: BP 146/63; PULSE 67; RESP 18; TEMP 37.2; O2SAT 93
[2022-10-23 05:37] LABS: Add Manual Diff / Slide Review NO; Basophils Absolute Auto 0 /uL (0-100); Basophils Percent Auto 0.1 % (0-2); Eosinophils Absolute Auto 0 /uL (0-450); Eosinophils Percent Auto 0.3 % (2-4); Lymphocytes Absolute Auto 1000 /uL (1100-4500); Lymphocytes Percent Auto 18.6 % (25-40); Mean Corpuscular HGB Conc 32.4 % (30-36); Mean Corpuscular Hemoglobin 26.6 PG (26-34); Mean Corpuscular Volume 82.1 fL (80-100); Monocytes Absolute Auto 500 /uL (0-900); Monocytes Percent Auto 10.2 % (3-14); Neutrophils Absolute Auto 3700 /uL (1500-7000); Neutrophils Percent Auto 70.8 % (50-75); Platelet Count 146 X10^3/uL (150-400); Red Blood Cell Count 4.87 X10^6/uL (4.5-5.9); Red Cell Distribution Width 16.9 % (11.6-14.8); White Blood Cell Count 5.2 X10^3/uL (4.5-11.0)
[2022-10-23 05:46] LABS: BUN Creatinine Ratio 15.5 (6-22); Blood Urea Nitrogen 11 mg/dL (9-20); Calcium 7.5 mg/dL (8.4-10.2); Carbon Dioxide 30 mmol/L (22-32); Chloride 103 mmol/L (98-107); Estimated Glomerular Filt Rate > 60 mL/min (>60); Glucose 91 mg/dL (80-110); HEMOLYSIS < 15 (0-50); Potassium 4.1 mmol/L (3.4-5.1); Sodium 137 mmol/L (137-145)
[2022-10-23] MEDS: SODIUM CHLORIDE 0.9% 1,000 ML 80 ML IV (06:00)
[2022-10-23 09:00] VITALS: RESP 17; TEMP 37.7; O2SAT 96
[2022-10-23 09:06] VITALS: PULSE 81; RESP 18; O2SAT 94
[2022-10-23] MEDS: ALBUTEROL/IPRATROPIUM 3 ML AMPUL INH (09:06)
[2022-10-23] MEDS: GABAPENTIN 100 MG CAPSULE PO (09:09)
[2022-10-23] MEDS: METOPROLOL IR 25 MG TABLET PO (09:10)
[2022-10-23] MEDS: FERROUS SULFATE 325 MG TABLET PO (09:10)
[2022-10-23] MEDS: ENOXAPARIN 40 MG/0.4 ML SYRINGE SUBCUT (09:10)
[2022-10-23] MEDS: CARBIDOPA-LEVODOPA 25/100 TABLET 1 EACH PO (09:10)
[2022-10-23] MEDS: OSELTAMIVIR 75 MG CAPSULE PO (09:11)
[2022-10-23] MEDS: PANTOPRAZOLE DR 40 MG TABLET PO (09:11)
--- NOTE | 2022-10-23 09:14 | P.DS_ITS ---
History of Present Illness History of Present Illness Date Patient Seen: 10/23/22 Time Patient Seen: 09:14 Chief complaint: Acute respiratory failure, parainflu2, enceph Narrative: Per admitting provider, Kevin Torres is a 67-year-old male with a medical history of Parkinson's disease, peripheral neuropathy, GERD, HTN, asthma, iron-deficiency anemia who is visiting the area from [place] patient was brought in by his this evening for acute onset of confusion, fever, global weakness, with cough x3 days. Patient presented to the ED fever 103.2, 93, tachypneic 32, 130/64, hypoxic O2 saturation 86% on room air. The patient's dropped him off in the ED and was not present at the bedside for Dr. Uribe ED to interview. Patient is clear ly confused, able to state his name and knows that he is in hospital but is confused as to how he got here, and unable to provide accurate HPI, ROS, family history, or medication reconciliation. Patient denies any pain, discomfort, or shortness of breath, and appears to be resting comfortably in bed. On admit temp 101.7?, 132/60, 94, 22, pulse ox 94% on 2 L nasal cannula. Patient's workup is predominantly unremarkable sodium 134, chloride 94, lactate procalcitonin are normal, CXR-negative for any acute process. EKG:NSR, rate of 96, right BBB without ST or T-wave changes. Patient's respiratory panel positive for parainfluenza 2. Patient admitted for acute hypoxic respiratory failure secondary to parainfluenza 2 with encephalopathy. Discharge Providers Provider Date of admission: 10/22/22 01:07 Discharge Date: 10/23/22 Consults: 10/22/22 01:22 Consult to Dietitian, Adult Routine Comment: Reason For Exam: bmi 30.7 Consult to Occupational Therapy Evaluate & Treat Comment: Physician Instructions: Evaluate and treat Consult to Physical Therapy Evaluate & Treat Comment: Physician Instructions: Evaluate and Treat Discharge provider: Ran Yang DO Summary Hospital Course Discharge Diagnosis: Acute hypoxic respiratory failure secondary to parainfluenza 2 and bacterial pneumonia, acute, present on admit Sepsis, without septic shock, acute, present on admission Encephalopathy, acute secondary to parainfluenza 2, acute, present on admission Parkinson's disease, chronic, present on admission Hypertension, essential, chronic, present on admission Iron-deficiency anemia, chronic, present on admission GERD, chronic, present on admission Obesity, mild, acute on chronic, present on admission Hospital Course: This is a 67 year old male admitted with sepsis secondary to pneumonia. He presented with hypoxic respiratory failure and metabolic encephalopathy. He improved quite quickly with antibiotic therapy. Pneumonia is thought to be due to parainfluenza virus and bacterial superinfection. After a few days he felt much improved, was no longer on supplemental oxygen, and was able to ambulate with a walker in his room by himself, oxygen with ambulation remained above 90%. He was discharged home with another 5 days of augmentin to complete course for bacterial pneumonia. Time Spent with Patient Time spent: Greater than 30 minutes Exam Vital Signs (past 8 hours): - 10/23/22 03:10 10/23/22 09:06 Temperature 99 F Pulse Rate 67 81 Respiratory Rate 18 18 Blood Pressure 146/63 H Pulse Oximetry 93 94 Oxygen Delivery Method Room Air Oxygen Flow Rate 1 0 Fraction of Inspired Oxygen 21 Fraction of Inspired Oxygen 21 SaO2/FiO2 Ratio 447 Oxygen Delivery Method Room Air Oxygen Flow Rate 0 Narrative Exam Narrative: General: Patient is a well-developed, well-nourished male in no distress at this time. HEENT: Normocephalic, atraumatic, extraocular muscles intact, oral pharynx is clear and mucous membranes are moist. Neck is supple and symmetric, trachea is midline, no adenopathy, no thyroid enlargement, nontender, no masses palpated. Negative for JVD Chest: Normal AP diameter and contour without kyphoscoliosis, Equal chest rise without nasal flaring, retractions, or labored breathing. Mild tachypnea Lungs: Auscultation of all lung [place] bilateral lower lobes decreased, poor air exchange with expiratory wheezing Cardio: regular rate and rhythm without murmur, rubs, or gallops, no carotid b ruit, no cardiac pulsations present. Abdomen: Soft nontender, negative for organomegaly, or masses. Bowel sounds are present in all 4 quadrants without guarding or rebound, no CVA tenderness. Musculoskeletal: Muscle strength and tone are equal, no deformity, crepitus, effusions, cyanosis, clubbing or edema present. Full range of motion intact radial and pedal pulses are normal. Skin: Very Warm dry and intact without rashes, ulcerations or petechiae. Neuro: Alert and orientate x3, moves all extremities, sensation to touch intact, no gross deficits noted of cranial nerves. Ambulating with walker at bedside. Slow narrow gait but stable. Objective Labs 10/23/22 05:10 10/23/22 05:10 Labs: Laboratory Results - last 24 hr 10/23/22 10/23/22 05:10 05:10 WBC 5.2 RBC 4.87 Hgb 13.0 L Hct 40.0 L MCV 82.1 MCH 26.6 MCHC 32.4 RDW 16.9 H Plt Count 146 L Neut % (Auto) 70.8 Lymph % (Auto) 18.6 L [place] % (Auto) 10.2 Eos % (Auto) 0.3 L Baso % (Auto) 0.1 Neut # (Auto) 3700 Lymph # (Auto) 1000 L [place] # (Auto) 500 Eos # (Auto) 0 Baso # (Auto) 0 Sodium 137 Potassium 4.1 Chloride 103 Carbon Dioxide 30 BUN 11 Creatinine 0.71 Estimated GFR > 60 BUN/Creatinine Ratio 15.5 Glucose 91 Calcium 7.5 L [facility] Medical History Acid reflux Asthma Hypertension Iron deficiency anemia Parkinsons disease Peripheral neuropathy Social History household members: spouse and significant other Discharge Plan Discharge Plan Patient Disposition: Home Provider Discharge Comment: You were admitted to the hospital with confusion and low oxygen, likely do to a pneumonia. You improved quickly with antibiotics. Please complete antibiotics at home for possible pneumonia. Discharge orders & Medications Prescriptions: New amoxicillin-pot clavulanate 875-125 mg tablet 1 tab PO BID 5 Days Qty: 10 0RF Continued albuterol sulfate 90 mcg/actuation HFA aerosol inhaler See Rx Instructions .ROUTE .COMPLEX Rx Instructions: MDI not present w/ patient gabapentin 100 mg capsule 100 mg PO TID hydrochlorothiazide 25 mg tablet 12.5 mg PO DAILY metoprolol tartrate 25 mg tablet 25 mg PO BID omeprazole 40 mg capsule,delayed release(DR/EC) 40 mg PO DAILY ferrous sulfate 325 mg (65 mg iron) Tablet 325 mg PO DAILY calcium carbonate-vitamin D3 [Calcium 600 + D(3)] 600 mg-10 mcg (400 unit) Tablet 1 tab PO DAILY docusate sodium 100 mg Capsule 100 mg PO BID diclofenac sodium 1 % gel TOPICAL carbidopa-levodopa 25-100 mg tablet famotidine 20 mg tablet naproxen 250 mg tablet triamcinolone acetonide 0.1 % lotion TOPICAL Discontinued cephalexin 500 mg capsule Diet/Activity/Treatments Diet: Diet as Tolerated and Regular Activity: As tolerated no restrictions Visit Report/Discharge Packet Instructions: DI for Iron Deficiency Anemia-Adult, Amoxicillin and Clavulanic Acid Stand Alone Forms: Patient Portal/API, Stroke Signs & Symptoms Discharges patient from system. Discharge Date/Time: 10/23/22 12:41
--- NOTE | 2022-10-23 12:38 | PC.NURSE ---
Pt is dressed and ready for discharge home with Spouse. IV has been removed. Went over d/c instructions with Pt and Spouse-discussed d/c meds, time of last dose, reviewed stroke education, drinking fluids, taking full dose of abx as prescribed, resting as able and following up as needed.
== END 2022-10-23 12:41 | disposition home or self-care (01) | DRG 871 ==
LOC: ED 10-22 01:06 → AC 10-22 01:32
PROVIDERS: Admitting Provider Nurse Practitioner Family; Emergency Provider Emergency Medicine; Referring Provider Emergency Medicine; Visit Provider Nurse Practitioner Family
DX: A41.9 Sepsis, unspecified organism (principal); G93.41 Metabolic encephalopathy; J15.9 Unspecified bacterial pneumonia; J96.01 Acute respiratory failure with hypoxia; B34.8 Other viral infections of unspecified site; G20 Parkinson's disease; I10 Essential (primary) hypertension; D50.9 Iron deficiency anemia, unspecified; K21.9 Gastro-esophageal reflux disease without esophagitis; E66.9 Obesity, unspecified; R65.20 Severe sepsis without septic shock; G62.9 Polyneuropathy, unspecified; J45.909 Unspecified asthma, uncomplicated; Z68.30 Body mass index [BMI] 30.0-30.9, adult; Z20.822 Contact with and (suspected) exposure to COVID-19
CPT/HCPCS: 36415; 71045; 80048; 80053; 80305; 81001; 83605; 83690; 83880; 84145; 85025; 85610; 85730; 87040; 87633; 93005; 94640; 94762; 97162; 97165; 99285; J1650; J7613